=== PATIENT | female | born 1950 | race Caucasian/White ===

== ENCOUNTER 2021-04-17 17:35 | Inpatient (IN) | payer OTHER ==
[2021-04-17 18:16] VITALS: BMI 29.2
[2021-04-17] MEDS ORDERED: MAG HYDROX/AL HYDROX/SIMETH -MYLANTA- ORAL SUSPENSION PO ONE (22:55)
[2021-04-17] MEDS ORDERED: ACETAMINOPHEN 1000 MG/100 ML BAG IVPB ONE (22:55)
[2021-04-17] MEDS ORDERED: FAMOTIDINE 20 MG/50 ML IVPB 20 MG/50 ML MG IVPB ONE (22:55)
[2021-04-17] MEDS ORDERED: SODIUM CHLORIDE 0.9% 500 ML INFUS.BAG IV ONE (22:55)
[2021-04-17] MEDS ORDERED: ONDANSETRON 4 MG/2 ML VIAL IVPUSH ONE (22:55)
[2021-04-18] MEDS ORDERED: MAG HYDROX/AL HYDROX/SIMETH 30 ML UNIT-DOSE CUP ONE (00:03)
[2021-04-18 00:29] LABS: BASO % 0.9 % (0-2.0); EOS % 0.2 % (0-4.5); HEMATOCRIT 37.9 % (32.4-45.2); HEMOGLOBIN 12.9 GM/dL (10.7-15.3); LYMPH % 17.7 % (8-40); MCH 29.5 pg (25.7-33.7); MEAN CELL VOLUME 86.7 fl (80-96); MONO % 6.3 % (3.8-10.2); NEUT % 74.9 % (42.8-82.8); PLATELET COUNT 204 10^3/uL (134-434); RBC 4.37 M/mm3 (3.60-5.2); RDW 13.2 % (11.6-15.6); WHITE BLOOD COUNT 11.9 K/mm3 (4.0-10.0)
[2021-04-18] MEDS ORDERED: FAMOTIDINE 20 MG/50 ML IVPB 20 MG/50 ML MG IVPB ONE (00:44)
[2021-04-18 00:53] LABS: ALBUMIN 3.9 g/dl (3.4-5.0); CALCIUM 9.3 mg/dL (8.5-10.1); INR 1.09 (0.83-1.09); PROTHROMBIN TIME (PATIENT) 12.5 SEC (9.7-13.0)
[2021-04-18 00:54] LABS: MAGNESIUM 1.6 mg/dL (1.8-2.4)
[2021-04-18 00:55] LABS: ACTIVATED PTT 32.9 SECONDS (25.2-36.5)
[2021-04-18 00:56] LABS: CREATININE 0.7 mg/dL (0.55-1.3)
[2021-04-18 00:59] LABS: BILIRUBIN,TOTAL 0.7 mg/dL (0.2-1); TOT PROT 7.4 g/dl (6.4-8.2)
[2021-04-18 03:05] LABS: EPI CELLS 4 /uL (0-25.1); HYALINE CASTS 0 /uL (0-3.1); URINE APPEARANCE CLEAR; URINE BACTERIA 38 /uL (0-1359); URINE BILIRUBIN NEGATIVE (NEGATIVE); URINE COLOR YELLOW; URINE GLUCOSE (UA) NEGATIVE (NEGATIVE); URINE KETONE NEGATIVE (NEGATIVE); URINE LEUK ESTERASE 1+ (NEGATIVE); URINE NITRITE NEGATIVE (NEGATIVE); URINE PROTEIN NEGATIVE (NEGATIVE); URINE RBC 3 /uL (0-23.9); URINE UROBILINOGEN 0.2 mg/dL (0.2-1.0); URINE WBC 15 /uL (0-25.8)
[2021-04-18] MEDS ORDERED: PIPERACILLIN/TAZOB 3.375 GM 3.375 GM in DEXTROSE 5%-WATER - 50 ML IVPB ONE (03:36)
[2021-04-18] MEDS ORDERED: PIPERACILLIN/TAZOB 3.375 GM 3.375 GM/50 ML BAG IVPB ONE (03:45)
[2021-04-18] MEDS ORDERED: morphine CARPU-JECT 4 MG/1 ML DISP.SYRIN IVPUSH ONE (03:58)
[2021-04-18] MEDS ORDERED: morphine SULFATE 4 MG/ML VIAL ONE (04:25)
[2021-04-18] MEDS ORDERED: ACETAMINOPHEN 1000 MG/100 ML BAG IVPB PRN (10:48)
[2021-04-18] MEDS ORDERED: PIPERACILLIN/TAZOB 3.375 GM 3.375 GM in DEXTROSE 5%-WATER - 50 ML IVPB SCH ×2 (11:00→18:00)
[2021-04-18] MEDS ORDERED: PIPERACILLIN/TAZOBACTAM 3.375 GM VIAL IVPB ONE ×2 (12:41→17:30)
[2021-04-18] MEDS ORDERED: DEXTROSE 5%-WATER - 50 ML IVPB ONE ×2 (12:41→17:31)
[2021-04-18] MEDS: DEXTROSE 5%-0.45% SALINE 1,000 ML IV SCH (12:54)
[2021-04-18] MEDS: PIPERACILLIN/TAZOB 3.375 GM 3.375 GM in DEXTROSE 5%-WATER - 50 ML IVPB SCH (17:36)
[2021-04-19] MEDS ORDERED: DEXTROSE 5%-WATER - 50 ML IVPB ONE ×3 (01:42→21:35)
[2021-04-19] MEDS ORDERED: PIPERACILLIN/TAZOBACTAM 3.375 GM VIAL IVPB ONE ×4 (01:42→21:35)
[2021-04-19] MEDS: PIPERACILLIN/TAZOB 3.375 GM 3.375 GM in DEXTROSE 5%-WATER - 50 ML IVPB SCH ×3 (02:56→22:04)
[2021-04-19] MEDS: DEXTROSE 5%-0.45% SALINE 1,000 ML IV SCH ×3 (05:40→19:15)
[2021-04-19 10:16] LABS: BASO % 0.4 % (0-2.0); EOS % 1.4 % (0-4.5); HEMATOCRIT 36.4 % (32.4-45.2); HEMOGLOBIN 12.5 GM/dL (10.7-15.3); MCH 29.8 pg (25.7-33.7); MCHC 34.2 g/dl (32.0-36.0); MEAN CELL VOLUME 87.1 fl (80-96); MONO % 8.3 % (3.8-10.2); NEUT % 66.9 % (42.8-82.8); PLATELET COUNT 174 10^3/uL (134-434); RBC 4.19 M/mm3 (3.60-5.2); RDW 13.2 % (11.6-15.6); WHITE BLOOD COUNT 8.6 K/mm3 (4.0-10.0)
[2021-04-19 10:44] LABS: BLOOD UREA NITROGEN 7.6 mg/dL (7-18); CALCIUM 8.6 mg/dL (8.5-10.1)
[2021-04-19 10:45] LABS: ALBUMIN 3.1 g/dl (3.4-5.0)
[2021-04-19 10:47] LABS: CREATININE 0.6 mg/dL (0.55-1.3)
[2021-04-19 10:49] LABS: BILIRUBIN,TOTAL 0.9 mg/dL (0.2-1); TOT PROT 6.3 g/dl (6.4-8.2)
[2021-04-19] MEDS ORDERED: PROPOFOL 20 ML ONE (12:31)
[2021-04-19] MEDS ORDERED: MIDAZOLAM HCL 2 MG/2 ML SINGLE DOSE VIAL ONE (12:32)
[2021-04-19] MEDS ORDERED: ROCURONIUM BROMIDE 50 MG/5 ML SYRINGE ONE ×2 (12:32→13:37)
[2021-04-19] MEDS ORDERED: DEXAMETHASONE SOD PHOSPHATE 4 MG/1 ML VIAL ONE (13:00)
[2021-04-19] MEDS ORDERED: GLYCOPYRROLATE 0.2 MG/1 ML VIAL ONE (14:07)
[2021-04-19] MEDS ORDERED: NEOSTIGMINE METHYLSULFATE 0.5 MG/ML - 10 ML MDV ONE (14:07)
[2021-04-19] MEDS ORDERED: BUPIVACAINE HCL/PF 0.5% (5 MG/ML) 30 ML VIAL IJ ONE (14:10)
[2021-04-19] MEDS ORDERED: KETOROLAC TROMETHAMINE 30 MG/1 ML VIAL ONE (14:12)
[2021-04-19] MEDS ORDERED: ACETAMINOPHEN 1000 MG/100 ML BAG IVPB ONE ×2 (14:57→16:02)
[2021-04-19] MEDS ORDERED: ONDANSETRON 4 MG/2 ML VIAL IVPUSH PRN ×2 (14:57→15:04)
[2021-04-19] MEDS ORDERED: LACTATED RINGERS SOLUTION 1,000 ML IV SCH (15:00)
[2021-04-19] MEDS ORDERED: oxyCODONE HCL 5 MG TABLET PO PRN (15:02)
[2021-04-19] MEDS ORDERED: ACETAMINOPHEN INJECTION 100 ML IVPB ONE (15:58)
[2021-04-19] MEDS: ACETAMINOPHEN 500 MG TABLET (FP) PO SCH (21:00)
[2021-04-20] MEDS: ACETAMINOPHEN 500 MG TABLET (FP) PO SCH ×2 (03:00→09:21)
[2021-04-20] MEDS ORDERED: PIPERACILLIN/TAZOBACTAM 3.375 GM VIAL IVPB ONE (04:22)
[2021-04-20] MEDS ORDERED: DEXTROSE 5%-WATER - 50 ML IVPB ONE (04:22)
[2021-04-20] MEDS: PIPERACILLIN/TAZOB 3.375 GM 3.375 GM in DEXTROSE 5%-WATER - 50 ML IVPB SCH (04:30)
[2021-04-20] MEDS: DEXTROSE 5%-0.45% SALINE 1,000 ML IV SCH ×2 (06:28→14:45)
[2021-04-20] MEDS: INSULIN SLIDING SCALE (NOVOLOG) 1 VIAL SQ SCH ×3 (06:29→16:28)
[2021-04-20 09:21] LABS: BASO % 0.2 % (0-2.0); EOS % 0.4 % (0-4.5); HEMATOCRIT 32.4 % (32.4-45.2); HEMOGLOBIN 11.2 GM/dL (10.7-15.3); LYMPH % 24.5 % (8-40); MCHC 34.7 g/dl (32.0-36.0); MEAN CELL VOLUME 86.5 fl (80-96); MEAN PLT VOLUME 9.3 fl (7.5-11.1); MONO % 7.8 % (3.8-10.2); NEUT % 67.1 % (42.8-82.8); PLATELET COUNT 172 10^3/uL (134-434); RBC 3.74 M/mm3 (3.60-5.2); RDW 13.1 % (11.6-15.6); WHITE BLOOD COUNT 8.3 K/mm3 (4.0-10.0)
[2021-04-20 09:42] LABS: ALBUMIN 2.9 g/dl (3.4-5.0); CALCIUM 8.5 mg/dL (8.5-10.1)
[2021-04-20 09:43] LABS: BLOOD UREA NITROGEN 7.4 mg/dL (7-18)
[2021-04-20 09:46] LABS: CREATININE 0.8 mg/dL (0.55-1.3)
[2021-04-20 09:48] LABS: BILIRUBIN,TOTAL 0.8 mg/dL (0.2-1)
[2021-04-20] MEDS ORDERED: ASPIRIN COATED 81 MG TABLET.EC PO SCH (10:00)
[2021-04-20] MEDS ORDERED: ENOXAPARIN NA (PORCINE) 40 MG/0.4 ML DISP.SYRIN SQ SCH (10:00)
[2021-04-20] MEDS ORDERED: ATENOLOL 25 MG TABLET (FP) PO SCH (10:00)
[2021-04-20] MEDS ORDERED: PANTOPRAZOLE 40 MG TABLET PO SCH (10:00)
[2021-04-20] MEDS ORDERED: LISINOPRIL 20 MG TABLET PO SCH (10:00)
[2021-04-20] MEDS ORDERED: POTASSIUM CHLORIDE TABS 20 MEQ TABLET.ER (FP) PO ONE (10:18)
[2021-04-20 15:23] VITALS: BP 116/57; PULSE 67; TEMP 98.6
[2021-04-20] MEDS ORDERED: ATORVASTATIN CA 40 MG TABLET (FP) PO SCH (22:00)
== END 2021-04-20 19:04 | disposition home or self-care (01) | DRG 418 ==
LOC: JER 17:35 → UNDOADMOB 04-18 03:33 → JERBED 04-18 03:33 → INTOOBSV 04-18 03:33 → JERBED 04-18 10:20 → J5S 04-18 10:20 → JERBED 04-18 15:54 → OBSVTOIN 04-19 13:54
PROVIDERS: ADMIT Internal Medicine; ATTEND Internal Medicine
PROC: 0FT44ZZ Resection of Gallbladder, Percutaneous Endoscopic Approach (ICD-10-PCS; principal; 2021-04-19 12:00)
DX: K80.00 Calculus of gallbladder with acute cholecystitis without obstruction (principal); K82.1 Hydrops of gallbladder; I10 Essential (primary) hypertension; E11.9 Type 2 diabetes mellitus without complications; E78.5 Hyperlipidemia, unspecified; E87.6 Hypokalemia
CPT/HCPCS: 36415; 71046-TC-FY; 74177-TC; 76705-TC; 80048; 80053; 81003; 82962; 83605; 83690; 83735; 84484; 85025; 85610; 85730; 86850; 86900; 86901; 87077; 87086; 88304-TC; 93005; 93010; 94760; 99285-25; C9803; G0378; U0003; U0005

== ENCOUNTER 2023-08-18 23:21 | Emergency (ER) | payer OTHER ==
[2023-08-18 23:26] VITALS: BP 132/77; PULSE 65; RESP 18; TEMP 98.1; BMI 29.9
[2023-08-19] MEDS ORDERED: ACETAMINOPHEN INJECTION 100 ML IVPB ONE (00:56)
[2023-08-19 00:57] LABS: BASO % 1.2 % (0-2.0); EOS % 2.7 % (0-4.5); HEMATOCRIT 35.2 % (32.4-45.2); LYMPH % 27.3 % (8-40); MCH 28.5 pg (25.7-33.7); MCHC 34.1 g/dl (32.0-36.0); MEAN CELL VOLUME 83.7 fl (80-96); MEAN PLT VOLUME 8.8 fl (7.5-11.1); NEUT % 60.8 % (42.8-82.8); PLATELET COUNT 257 10^3/uL (134-434); WHITE BLOOD COUNT 10.7 K/mm3 (4.0-10.0)
[2023-08-19] MEDS: ACETAMINOPHEN 1000 MG/100 ML BAG IVPB ONE (00:59)
[2023-08-19 01:11] LABS: INR 1.03 (0.83-1.09); PROTHROMBIN TIME (PATIENT) 11.6 SEC (9.7-13.0)
[2023-08-19 01:13] LABS: ACTIVATED PTT 34.2 SECONDS (25.2-36.5)
[2023-08-19 01:17] LABS: CALCIUM 8.9 mg/dL (8.5-10.1)
[2023-08-19 01:18] LABS: ALBUMIN 3.3 g/dl (3.4-5.0); BLOOD UREA NITROGEN 15.2 mg/dL (7-18); MAGNESIUM 1.9 mg/dL (1.8-2.4)
[2023-08-19 01:20] LABS: CREATININE 0.7 mg/dL (0.55-1.3)
[2023-08-19 01:22] LABS: BILIRUBIN,TOTAL 0.4 mg/dL (0.2-1); TOT PROT 6.6 g/dl (6.4-8.2)
[2023-08-19 02:20] LABS: URINE APPEARANCE CLEAR; URINE BILIRUBIN NEGATIVE (NEGATIVE); URINE COLOR YELLOW; URINE GLUCOSE (UA) NEGATIVE (NEGATIVE); URINE KETONE NEGATIVE (NEGATIVE); URINE LEUK ESTERASE NEGATIVE (NEGATIVE); URINE NITRITE NEGATIVE (NEGATIVE); URINE PROTEIN NEGATIVE (NEGATIVE); URINE UROBILINOGEN 0.2 mg/dL (0.2-1.0)
[2023-08-19] MEDS ORDERED: IBUPROFEN 200 MG TABLET PO ONE (03:32)
== END 2023-08-19 03:45 | disposition home or self-care (01) ==
LOC: JER 23:21
PROC: 3E033NZ Introduction of Analgesics, Hypnotics, Sedatives into Peripheral Vein, Percutaneous Approach (ICD-10-PCS; principal; 2023-08-19)
DX: K59.00 Constipation, unspecified (principal); M79.89 Other specified soft tissue disorders; R11.0 Nausea
CPT/HCPCS: 36415; 74177-TC; 80053; 81003; 83690; 83735; 84484; 85025; 85610; 85730; 87086; 93005; 93010; 93970-TC; 96374; 99285-25; J0131; Q9967